=== PATIENT | female | born 1995 | race Caucasian/White ===

== ENCOUNTER 2018-05-24 14:13 | Emergency (ER) | payer OTHER ==
--- NOTE | 2018-05-24 14:20 | ER Report ---
History and Physical Time Seen By MD: 14:20 HPI/ROS 23-year-old female who just finished a round of antibiotics as well as a short course of NSAIDs. She presents with sharp intermittent mid epigastric pain for the past 24 hours. Worse with by mouth. No nausea vomiting. No fever chills. No cough or shortness of breath. No right upper quadrant pain. Not drink alcohol. Otherwise she feels well in between the episodes of pain. Remainder of the 14 system rev: Yes Home Meds No Active Prescriptions or Reported Meds Reviewed Nurses Notes: Yes Old Medical Records Reviewed: Yes Hx Smoking: No Smoking Status: Never Smoker Exposure to Second Hand Smoke?: No Hx Substance Use Disorder: No Hx Alcohol Use: No Constitutional Vital Sign - Last 24 Hours 05/24/18 14:22 Temp 98.2 Pulse 81 Resp 16 B/P (MAP) 120/84 Pulse Ox 96 O2 Delivery Room Air Physical Exam General Appearance: The patient is alert, has no immediate need for airway protection and no current signs of toxicity. Eyes: Pupils equal and round no injection. Respiratory: Chest is non tender, lungs are clear to auscultation. Cardiac: regular rate and rhythm Gastrointestinal: Abdomen is soft and non tender, no masses, bowel sounds normal. Extremities have full range of motion and are non tender. Skin: No rashes or lesions. DIFFERENTIAL DIAGNOSIS: After history and physical exam differential diagnosis was considered for abdominal pain including but not limited to appendicitis, cholecystitis, gastritis, PUD, esophagitis, and urinary tract infection. Medical Decision Making Data Points Result Diagram: 05/24/18 1526 05/24/18 1448 Laboratory Hematology Test 05/24/18 14:48 05/24/18 15:26 05/24/18 16:20 Sodium Level 137 mmol/L (137-145) Potassium Level 3.7 mmol/L (3.5-5.0) Chloride Level 105 mmol/L (98-107) Carbon Dioxide Level 20 mmol/L (22-31) Blood Urea Nitrogen 14 mg/dl (7-18) Creatinine 0.70 mg/dl (0.52-1.04) Glomerular Filtration Rate Calc > 60.0 Random Glucose 76 mg/dl (75-110) Calcium Level 9.3 mg/dl (8.4-10.2) Total Bilirubin 0.4 mg/dl (0.2-1.3) Aspartate Amino Transf (AST/SGOT) 29 U/L (0-35) Alanine Aminotransferase (ALT/SGPT) 23 U/L (0-56) Alkaline Phosphatase 61 U/L (0-126) Total Protein 7.3 g/dl (6.3-8.2) Albumin 4.0 g/dl (3.5-5.0) Red Blood Count 4.72 M/uL (4.17-5.56) Mean Corpuscular Volume 89.4 fL (80.0-96.0) Mean Corpuscular Hemoglobin 31.0 pg (26.0-33.0) Mean Corpuscular Hemoglobin Concent 34.7 g/dL (32.0-36.0) Red Cell Distribution Width 12.9 % (11.5-14.5) Mean Platelet Volume 7.9 fL (7.2-11.1) Neutrophils (%) (Auto) 67.2 % (39.4-72.5) Lymphocytes (%) (Auto) 25.4 % (17.6-49.6) Monocytes (%) (Auto) 6.2 % (4.1-12.4) Eosinophils (%) (Auto) 0.5 % (0.4-6.7) Basophils (%) (Auto) 0.7 % (0.3-1.4) Nucleated RBC Relative Count (auto) 0.0 /100WBC Neutrophils # (Auto) 5.0 K/uL (2.0-7.4) Lymphocytes # (Auto) 1.9 K/uL (1.3-3.6) Monocytes # (Auto) 0.5 K/uL (0.3-1.0) Eosinophils # (Auto) 0.0 K/uL (0.0-0.5) Basophils # (Auto) 0.1 K/uL (0.0-0.1) Nucleated RBC Absolute Count (auto) 0.00 K/uL Urine Color Straw Urine Clarity Clear Urine pH 6.0 pH (4.8-9.5) Urine Specific [place] 1.005 Urine Protein Negative mg/dL (NEGATIVE) Urine Glucose (UA) Negative mg/dL (NEGATIVE) Urine Ketones 20 mg/dL (NEGATIVE) Urine Blood Negative (NEGATIVE) Urine Nitrite Negative (NEGATIVE) Urine Bilirubin Negative (NEGATIVE) Urine Urobilinogen Negative mg/dL (0.2-1.9) Urine Leukocyte Esterase Negative (NEGATIVE) Urine RBC <1 /HPF (0-2/HPF) Urine WBC <1 /HPF (0-5/HPF) Urine Squamous Epithelial Cells Few /LPF (</=FEW) Urine Bacteria Negative /HPF (NONE-FEW) Urine Mucus None /HPF (NONE-FEW) Chemistry Test 05/24/18 14:48 05/24/18 15:26 05/24/18 16:20 Glomerular Filtration Rate Calc > 60.0 Calcium Level 9.3 mg/dl (8.4-10.2) Total Bilirubin 0.4 mg/dl (0.2-1.3) Aspartate Amino Transf (AST/SGOT) 29 U/L (0-35) Alanine Aminotransferase (ALT/SGPT) 23 U/L (0-56) Alkaline Phosphatase 61 U/L (0-126) Total Protein 7.3 g/dl (6.3-8.2) Albumin 4.0 g/dl (3.5-5.0) White Blood Count 7.4 k/uL (4.5-11.0) Red Blood Count 4.72 M/uL (4.17-5.56) Hemoglobin 14.7 g/dL (12.0-16.0) Hematocrit 42.2 % (34.0-47.0) Mean Corpuscular Volume 89.4 fL (80.0-96.0) Mean Corpuscular Hemoglobin 31.0 pg (26.0-33.0) Mean Corpuscular Hemoglobin Concent 34.7 g/dL (32.0-36.0) Red Cell Distribution Width 12.9 % (11.5-14.5) Platelet Count 266 K/uL (150-450) Mean Platelet Volume 7.9 fL (7.2-11.1) Neutrophils (%) (Auto) 67.2 % (39.4-72.5) Lymphocytes (%) (Auto) 25.4 % (17.6-49.6) Monocytes (%) (Auto) 6.2 % (4.1-12.4) Eosinophils (%) (Auto) 0.5 % (0.4-6.7) Basophils (%) (Auto) 0.7 % (0.3-1.4) Nucleated RBC Relative Count (auto) 0.0 /100WBC Neutrophils # (Auto) 5.0 K/uL (2.0-7.4) Lymphocytes # (Auto) 1.9 K/uL (1.3-3.6) Monocytes # (Auto) 0.5 K/uL (0.3-1.0) Eosinophils # (Auto) 0.0 K/uL (0.0-0.5) Basophils # (Auto) 0.1 K/uL (0.0-0.1) Nucleated RBC Absolute Count (auto) 0.00 K/uL Urine Color Straw Urine Clarity Clear Urine pH 6.0 pH (4.8-9.5) Urine Specific [place] 1.005 Urine Protein Negative mg/dL (NEGATIVE) Urine Glucose (UA) Negative mg/dL (NEGATIVE) Urine Ketones 20 mg/dL (NEGATIVE) Urine Blood Negative (NEGATIVE) Urine Nitrite Negative (NEGATIVE) Urine Bilirubin Negative (NEGATIVE) Urine Urobilinogen Negative mg/dL (0.2-1.9) Urine Leukocyte Esterase Negative (NEGATIVE) Urine RBC <1 /HPF (0-2/HPF) Urine WBC <1 /HPF (0-5/HPF) Urine Squamous Epithelial Cells Few /LPF (</=FEW) Urine Bacteria Negative /HPF (NONE-FEW) Urine Mucus None /HPF (NONE-FEW) Urinalysis Test 05/24/18 16:20 Urine Color Straw Urine Clarity Clear Urine pH 6.0 pH (4.8-9.5) Urine Specific [place] 1.005 Urine Protein Negative mg/dL (NEGATIVE) Urine Glucose (UA) Negative mg/dL (NEGATIVE) Urine Ketones 20 mg/dL (NEGATIVE) Urine Blood Negative (NEGATIVE) Urine Nitrite Negative (NEGATIVE) Urine Bilirubin Negative (NEGATIVE) Urine Urobilinogen Negative mg/dL (0.2-1.9) Urine Leukocyte Esterase Negative (NEGATIVE) Urine RBC <1 /HPF (0-2/HPF) Urine WBC <1 /HPF (0-5/HPF) Urine Squamous Epithelial Cells Few /LPF (</=FEW) Urine Bacteria Negative /HPF (NONE-FEW) Urine Mucus None /HPF (NONE-FEW) EKG/Imaging Imaging Results: Ultrasound of the RUQ was obtained. The results of the study are normal. The study was read by the radiologist. I viewed the images myself on the PACS system. ED Course/Re-evaluation ED Course Intermittent episodes of sharp shooting mid epigastric pain after finishing antibiotics 2 days ago as well as a course of NSAIDs. Normal labs include lipase. Normal ultrasound. Improved with Protonix and GI cocktail. I think this is likely esophagitis secondary to antibiotics and NSAIDs. She is an otherwise extremely healthy person. Do not think this is a perforated ulcer. I counseled her to start taking Zantac, a PPI, and Maalox for symptomatic relief. Otherwise follow-up with her primary care physician. Decision to Disposition Date: May 24, 2018 Decision to Disposition Time: 18:12 Depart Departure Latest Vital Signs Vital Signs Date Time Temp Pulse Resp B/P (MAP) Pulse Ox O2 Delivery O2 Flow Rate FiO2 05/24/18 14:22 98.2 81 16 120/84 96 Room Air Impression: Primary Impression: Esophagitis, acute Condition: Improved Disposition: HOME OR SELF-CARE New Scripts No Active Prescriptions or Reported Meds Patient Instructions: Esophagitis (ED) Additional Instructions: Take Zantac 150 mg twice a day along with Nexium, Protonix, Prilosec. You can also take Maalox for symptomatic relief. COLIN GONZALEZ MD May 24, 2018 14:20
[2018-05-24 15:33] LABS: PLATELET COUNT, AUTOMATED 266 K/uL (150-450)
[2018-05-24] MEDS ORDERED: NS(*) 0.9% 1000 ML BAG 1,000 ML IV ONE (15:55)
[2018-05-24] MEDS ORDERED: PANTOPRAZOLE SOD(*)40 MG VIAL 80 MG in NS(*) 0.9% 100 ML BAG 100 ML IVPB ONE (15:55)
[2018-05-24] MEDS ORDERED: GI COCKTAIL 60 ML BTL PO PRN (15:55)
[2018-05-24 16:00] VITALS: BP 121/84
[2018-05-24] MEDS ORDERED: MAG HYD/AL HYD/SIMETH 30ML UDC PO ONE (16:20)
[2018-05-24] MEDS ORDERED: ATRO/SCOPOL/HYOSCY/PB 5 ML ELX PO ONE (16:20)
[2018-05-24] MEDS ORDERED: LIDOCAINE 2% VISC SLN 15ML UDC PO ONE (16:20)
--- NOTE | 2018-05-24 17:39 | RADIOLOGY IMAGING REPORT ---
FACILITY: [facility] - [place] PATIENT NAME: Jane Tran : 1995 MR: [id number] V: [id number] EXAM DATE: ORDERING PHYSICIAN: COLIN GONZALEZ TECHNOLOGIST: Location: [facility] - [place] Patient: Jane Tran : 1995 Visit/Account:[id number] Date of Sevice: 05/24/2018 EXAMINATION: Right upper quadrant abdominal ultrasound HISTORY: Epigastric pain and right upper quadrant pain. COMPARISON: None. FINDINGS: Liver: Normal hepatic echotexture. No focal liver lesions identified. Antegrade flow is visualized in the main portal vein. Gallbladder: Normal sonographic appearance of the gallbladder, without evidence of stones or sludge. No gallbladder wall thickening or pericholecystic fluid. Negative sonographic Dalal sign. Bile Ducts: No biliary ductal dilatation. The common duct measures 2 mm. Pancreas: The head and body of the pancreas are segmentally visualized and unremarkable where seen. Right kidney: Normal echogenicity of the right kidney. The renal cortical parenchyma is maintained. N o hydronephrosis. The right kidney measures 11.0 cm in length. Aorta: Segmentally visualized proximally. Patent and normal in caliber where seen. IVC: Patent. Ascites: None. IMPRESSION: Unremarkable right upper quadrant abdominal ultrasound. Report Dictated By: Raffi Ferguson MD at 05/24/2018 5:33 PM Report E-Signed By: Raffi Ferguson MD at 05/24/2018 5:35 PM WSN:[id number]
== END 2018-05-24 18:20 | disposition home or self-care (01) ==
LOC: ER 14:34
DX: K20.9 Esophagitis, unspecified (principal)
CPT/HCPCS: 36415; 76705; 81001; 85025; 96365; 99284; C9113; J7030; J7050; 82040; 82247; 82310; 82374; 82435; 82565; 82947; 84075; 84132; 84155; 84295; 84450; 84460; 84520